=== PATIENT | male | born 1985 | race Caucasian/White ===

== ENCOUNTER 2019-01-22 19:04 | Emergency (ER) | payer SELFPAY ==
[~2019-01-22] VITALS: Ht 172.7 cm; Wt 81.6 kg
[2019-01-22] MEDS ORDERED: LIDOCAINE PF 2% 5 ML (XYLOCAINE) VIAL ONE (19:21)
[2019-01-22] MEDS ORDERED: CEPH-507 PO (19:24)
--- NOTE | 2019-01-22 19:24 | ED Upper Extremity ---
General Stated Complaint: LEFT HAND LACERATION/ SAWING WOOD Source: patient Exam Limitations: no limitations History of Present Illness Date Seen by Provider: Jan 22, 2019 Time Seen by Provider: 19:22 Initial Comments To ER with reports of a laceration to the left hand from using a hand saw to cut wood at home. This was a new sawblade. His tetanus is not up-to-date. Onset: just prior to arrival Severity: moderate Pain/Injury Location: left 2nd finger Modifying Factors: Worse With Movement Allergies and Home Medications Allergies Coded Allergies: No Known Drug Allergies (Unverified , 01/22/19) Home Medications Cephalexin 500 Mg Capsule, 500 MG PO TID Prescribed by: SUE AUGUST on 01/22/191923 Patient Home Medication List Home Medication List Reviewed: Yes Review of Systems Constitutional: see HPI EENTM: see HPI Respiratory: no symptoms reported Cardiovascular: no symptoms reported Genitourinary: no symptoms reported Musculoskeletal: no symptoms reported Skin: see HPI Past [id number]-[id number] Hx Patient Social History Recent Foreign Travel: No Contact w/Someone Who Travel: No Physical Exam Vital Signs Capillary Refill : Height, Weight, BMI Height: '" Weight: lbs. oz. kg; BMI Method: General Appearance: WD/WN, no apparent distress HEENT: PERRL/EOMI, normal ENT inspection Neck: non-tender, full range of motion Respiratory: no respiratory distress, no accessory muscle use Shoulder: normal inspection, non-tender Hand: Left, laceration (1 cm laceration to the radial side of the proximal phalanx left pointer finger without active bleeding. Normal sensation and capillary refill distally. Normal flexion and extension of the finger.) Neurologic/Psychiatric: alert, normal mood/affect, oriented x 3 Skin: normal color, warm/dry Procedures/Interventions Wound Location: Upper Extremities Wound Length (cm): 1.5 Wound's Depth, Shape: linear, sub Q Irrigated w/ Saline (ccs): 60 Betadine Prep?: Yes Anesthesia: 1% Lidocaine Volume Anesthetic (ccs): 1 Suture: Prolene Suture Size: 5-0 Number of Sutures: 4 Layer Closure?: 1 Number Deep Layer Sutures: 0 Anesthetized with 2% lidocaine without epinephrine. Wound then scrubbed with chlorhexidine/saline solution and irrigated with 60 mL of the same. No foreign bodies identified. Closed with 4 simple interrupted sutures size 5-0 Prolene. Progress/Results/Core Measures Results/Orders My Orders Orders - SUE AUGUST APRN Dipht,Pertuss(Acell),Tet Adult (Boostrix (01/22/19 19:30) Lidocaine 1% Inj 20 Ml (Xylocaine 1% Inj (01/22/19 19:30) Departure Impression Primary Impression: Finger laceration Qualified Codes: S61.211A - Laceration without foreign body of left index finger without damage to nail, initial encounter Disposition: 01 HOME, SELF-CARE Condition: Stable Departure-Patient Inst. Decision time for Depature: 19:23 Referrals: NO,LOCAL PHYSICIAN (PCP) Primary Care Physician Patient Instructions: Laceration Repair With Stitches (DC) Add. Discharge Instructions: 1. Return to the emergency room in 10 days to have the stitches removed. Tylenol and Motrin for pain control. Antibiotics as directed. You may remove this bandage and leave this open to air beginning in about 48 hours. You may let water run over this such as in the shower beginning tonight. Scripts Cephalexin (Keflex) 500 Mg Capsule 500 MG PO TID, #12 CAP Prov: SUE AUGUST APRN 01/22/19 SUE AUGUST APRN Jan 22, 2019 19:24
[2019-01-22] MEDS ORDERED: TETANUS,DIPTH,PERTUSS P/F (BOOSTRIX) 0.5 ML VIAL IM ONE (19:30)
[2019-01-22] MEDS ORDERED: LIDOCAINE 1% INJ 20 ML 20 ML VIAL INJ ONE (19:30)
[2019-01-22] MEDS ORDERED: CEPHALEXIN 250 MG (KEFLEX) CAP PO ONE (19:45)
[2019-01-22 20:06] VITALS: BP 125/86
== END 2019-01-22 20:06 | disposition home or self-care (01) ==
LOC: ER 19:06
DX: S61.412A Laceration without foreign body of left hand, initial encounter (principal); Z23 Encounter for immunization; W27.8XXA Contact with other nonpowered hand tool, initial encounter; Y92.009 Unspecified place in unspecified non-institutional (private) residence as the place of occurrence of the external cause
CPT/HCPCS: 12001; 90715